=== PATIENT | female | born 1955 | race Caucasian/White ===

== ENCOUNTER 2022-11-01 08:05 | Day surgery (SDC) | payer MEDICARE, OTHER ==
[~2022-11-01] VITALS: Ht 157.5 cm; Wt 82.0 kg
[~2022-11-01 08:05] MED LIST: ACIDOPHILUS1 EAC1 PO; ALPR.25 PO; CHOL10002; Estradiol1 MG PO; IBUP600 PO; Pravachol40 MG; Wellbutrin Sr200 MG PO
[2022-11-01 08:54] VITALS: BP 110/70
--- NOTE | 2022-11-01 09:29 | NUR ---
11/01/22 0929 Juan C [place] History, Chart, Medications and Allergies reviewed before start of procedure. MONITOR INTACT WITH CONTINUOUS PULSE OXIMETRY, CONTINUOUS END TITAL CO2, AND INTERMITTENT BLOOD PRESSURE. 3-LEAD EKG REVIEWED WITH PHYSICIAN PRIOR TO START OF PROCEDURE. O2 VIA POM INTACT THROUGHOUT SEDATION/PROCEDURE.
[2022-11-01 10:00] VITALS: BP 93/64
[2022-11-01 10:15] VITALS: BP 112/64
--- NOTE | 2022-11-01 10:30 | NUR ---
DISCHARGE NOTE Discharge instructions reviewed with patient. Patient verbalizes understanding. Copy given to patient to take home. Discharged via wheelchair to private car for ride home.
== END 2022-11-01 23:04 | disposition home or self-care (01) ==
LOC: ORSCMMR 08:05 → ORD 10:00 → ORSCMMR 10:00
PROVIDERS: Internal Medicine Gastroenterology
PROC: 0DBN8ZX Excision of Sigmoid Colon, Via Natural or Artificial Opening Endoscopic, Diagnostic (ICD-10-PCS; principal; 2022-11-01 09:15)
DX: Z12.11 Encounter for screening for malignant neoplasm of colon (principal); Z86.010 Personal history of colon polyps; D12.5 Benign neoplasm of sigmoid colon; K57.30 Diverticulosis of large intestine without perforation or abscess without bleeding; Z85.810 Personal history of malignant neoplasm of tongue; E78.00 Pure hypercholesterolemia, unspecified; F41.8 Other specified anxiety disorders; G47.33 Obstructive sleep apnea (adult) (pediatric); Z79.899 Other long term (current) drug therapy
CPT/HCPCS: 88305; J2704; J7120